=== PATIENT | female | born 1955 | race American Indian/Alaskan Native ===

== ENCOUNTER 2016-08-11 00:36 | Emergency (ER) | payer MEDICAID, OTHER ==
[2016-08-11 03:26] LABS: Basophils % (Auto) 0.2 % (0.0-1.8); Hematocrit 41.1 % (30.3-42.9); Hemoglobin 13.9 gm/dl (10.1-14.3); Mean Corpuscular HGB Conc 34 % (30-34); Mean Corpuscular Hemoglobin 31 pg (28-32); Mean Corpuscular Volume 90 fl (79-97); Platelet Count 216 K/mm3 (140-440); Red Blood Count 4.57 M/mm3 (3.65-5.03); Red Cell Distribution Width 12.2 % (13.2-15.2); White Blood Count 7.6 K/mm3 (4.5-11.0)
[2016-08-11 03:39] LABS: Anion Gap 26 mmol/L; BUN/Creatinine Ratio 17.27; Blood Urea Nitrogen 19 mg/dL (7-17); Calcium 10.1 mg/dL (8.4-10.2); Carbon Dioxide 24 mmol/L (22-30); Chloride 94.1 mmol/L (98-107); Glucose 303 mg/dL (65-100); Potassium 4.9 mmol/L (3.6-5.0); Sodium 139 mmol/L (137-145)
[2016-08-11] MEDS ORDERED: PERCOCET 5/325 ONE (03:47)
[2016-08-11] MEDS ORDERED: PERCOCET 5/325 PO ONE (03:55)
[2016-08-11 05:36] LABS: Bilirubin,Urine NEG (Negative); Blood,Urine NEG (Negative); Ketones,Urine 20 mg/dL (Negative); Leukocyte Esterase,Urine SM (Negative); Mucus,Urine FEW /HPF; Nitrite,Urine NEG (Negative); RBC,Urine < 1.0 /HPF (0.0-6.0); Urobilinogen,Urine < 2.0 mg/dL (<2.0)
[2016-08-11] MEDS ORDERED: MORPHINE IV ONE (07:11)
[2016-08-11] MEDS ORDERED: ZOFRAN IV ONE (07:11)
[2016-08-11] MEDS ORDERED: NACL 0.9% 1000 ML 1,000 ML IV ONE ×3 (07:11→13:12)
[2016-08-11] MEDS ORDERED: DILAUDID IV ONE (07:15)
--- NOTE | 2016-08-11 07:16 | Emergency Department Report ---
ED Abdominal Pain HPI - General Chief Complaint: Abdominal Pain Stated Complaint: ABD PAIN Time Seen by Provider: 08/11/16 07:10 Source: patient, RN notes reviewed, old records reviewed Mode of arrival: Ambulatory Limitations: No Limitations - History of Present Illness Initial Comments: This is a 61-year-old female. She is previously unknown to me. Has a past medical history of diabetes and hypertension. She presents to the ER complaining of abdominal pain. Abdominal pain as sharp, achy, and "all over." Patient denies irritative and obstructive urinary symptoms. There is no vaginal bleeding. Patient reports that she feels like she has a urinary tract infection. Also reports a history of neuropathy and chronic pain. MD Complaint: abdominal pain -: Gradual Location: diffuse Severity: moderate Severity scale (0 -10): 6 Quality: cramping Consistency: constant Improves With: medication Worsens With: movement Associated Symptoms: nausea, vomiting - Related Data Home Medications Medication Instructions Recorded Confirmed Last Taken Glimepiride [Amaryl] 4 mg PO DAILY 12/04/15 08/11/16 Unknown Insulin Aspart Prot/Aspart(Nf) 8 units SQ WMHS 12/04/15 08/11/16 Unknown [Novolog Mix 70/30] Insulin Detemir [Levemir VIAL] 30 unit SQ QHS 12/04/15 08/11/16 Unknown Lisinopril [Zestril TAB] 10 mg PO QDAY 12/04/15 08/11/16 Unknown Metformin HCl [Fortamet ER] 1,000 mg PO QDAY 12/04/15 08/11/16 Unknown Pravastatin Sodium [Pravastatin] 10 mg PO QHS 12/04/15 08/11/16 Unknown amLODIPine [Norvasc] 10 mg PO DAILY 12/04/15 08/11/16 Unknown Previous Rx's Medication Instructions Recorded Last Taken Type Oxycodone HCl/Acetaminophen 1 each PO Q6HR PRN #10 tablet 12/04/15 Unknown Rx [Percocet 7.5/325 mg] Promethazine [Phenergan TAB] 25 mg PO Q6HR PRN #20 tab 12/04/15 Unknown Rx Promethazine [Phenergan] 25 mg [place] Q6HR PRN #10 supp.rect 12/04/15 Unknown Rx Ciprofloxacin HCl [Ciprofloxacin 500 mg PO BID #14 tablet 01/21/16 Unknown Rx TAB] traMADol [Ultram] 50 mg PO Q6HR PRN #20 tablet 01/21/16 Unknown Rx Dicyclomine [Bentyl] 10 mg PO QID PRN #20 capsule 08/11/16 Unknown Rx Ondansetron [Zofran Odt] 4 mg PO QID PRN #20 tab.rapdis 08/11/16 Unknown Rx Promethazine [Phenergan SUPPOS] 50 mg [place] Q6H PRN #20 supp.rect 08/11/16 Unknown Rx Allergies Allergy/AdvReac Type Severity Reaction Status Date / Time No Known Allergies Allergy Verified 09/18/13 14:31 ED Review of Systems ROS: Stated complaint: ABD PAIN Other details as noted in HPI Constitutional: malaise. denies: fever Eyes: denies: vision change ENT: denies: epistaxis Respiratory: denies: cough Gastrointestinal: abdominal pain, nausea, vomiting Genitourinary: as per HPI. denies: urgency, dysuria, frequency Musculoskeletal: denies: back pain Skin: denies: lesions Neurological: weakness Psychiatric: anxiety ED Past Medical Hx - Past Medical History Previous Medical History?: Yes Hx Hypertension: Yes Hx Diabetes: Yes Additional medical history: Neuropathy. Chronic Pain- Dr. Chacon - Surgical History Past Surgical History?: Yes Additional Surgical History: r wrist repair-fx'd. partial thyroidectomy - Social History Smoking Status: Never Smoker Substance Use Type: None - Medications Home Medications: Home Medications Medication Instructions Recorded Confirmed Last Taken Type Glimepiride [Amaryl] 4 mg PO DAILY 12/04/15 08/11/16 Unknown History Insulin Aspart Prot/Aspart(Nf) 8 units SQ WMHS 12/04/15 08/11/16 Unknown History [Novolog Mix 70/30] Insulin Detemir [Levemir VIAL] 30 unit SQ QHS 12/04/15 08/11/16 Unknown History Lisinopril [Zestril TAB] 10 mg PO QDAY 12/04/15 08/11/16 Unknown History Metformin HCl [Fortamet ER] 1,000 mg PO QDAY 12/04/15 08/11/16 Unknown History Oxycodone HCl/Acetaminophen 1 each PO Q6HR PRN #10 tablet 12/04/15 08/11/16 Unknown Rx [Percocet 7.5/325 mg] Pravastatin Sodium [Pravastatin] 10 mg PO QHS 12/04/15 08/11/16 Unknown History Promethazine [Phenergan TAB] 25 mg PO Q6HR PRN #20 tab 12/04/15 08/11/16 Unknown Rx Promethazine [Phenergan] 25 mg [place] Q6HR PRN #10 supp.rect 12/04/15 08/11/16 Unknown Rx amLODIPine [Norvasc] 10 mg PO DAILY 12/04/15 08/11/16 Unknown History Ciprofloxacin HCl [Ciprofloxacin 500 mg PO BID #14 tablet 01/21/16 08/11/16 Unknown Rx TAB] traMADol [Ultram] 50 mg PO Q6HR PRN #20 tablet 01/21/16 08/11/16 Unknown Rx Dicyclomine [Bentyl] 10 mg PO QID PRN #20 capsule 08/11/16 Unknown Rx Ondansetron [Zofran Odt] 4 mg PO QID PRN #20 tab.rapdis 08/11/16 Unknown Rx Promethazine [Phenergan SUPPOS] 50 mg WY Q6H PRN #20 supp.rect 08/11/16 Unknown Rx ED Physical Exam - General Limitations: No Limitations General appearance: alert, in distress, obese - Head Head exam: Present: atraumatic, normocephalic - Eye Eye exam: Present: normal appearance, EOMI. Absent: nystagmus - ENT ENT exam: Present: normal exam, normal orophraynx, mucous membranes moist, normal external ear exam - Neck Neck exam: Present: normal inspection, full ROM. Absent: tenderness, meningismus - Respiratory Respiratory exam: Present: normal lung sounds bilaterally. Absent: respiratory distress, wheezes, rales, rhonchi, stridor, decreased breath sounds - Cardiovascular Cardiovascular Exam: Present: normal rhythm, tachycardia, normal heart sounds. Absent: systolic murmur, diastolic murmur, rubs, gallop - GI/Abdominal GI/Abdominal exam: Present: soft, normal bowel sounds. Absent: distended, tenderness, guarding, rebound, rigid, pulsatile mass - Extremities Exam Extremities exam: Present: normal inspection, full ROM, normal capillary refill. Absent: tenderness, pedal edema, joint swelling, calf tenderness - Back Exam Back exam: Present: normal inspection, full ROM. Absent: tenderness, CVA tenderness (R), CVA tenderness (L), muscle spasm, paraspinal tenderness, vertebral tenderness - Neurological Exam Neurological exam: Present: alert, oriented X3, other (Extraocular movements intact. Tongue midline. No facial droop. Facial sensation intact to light touch in the V1, V2, V3 distribution bilaterally. 5 and 5 strength in 4 extremities.. Sensation is intact to light touch in 4 extremities.). Absent: motor sensory deficit - Psychiatric Psychiatric exam: Present: normal affect, normal mood - Skin Skin exam: Present: warm, dry, intact, normal color. Absent: rash ED Course Vital Signs 08/11/16 08/11/16 08/11/16 00:57 04:06 05:06 Temperature 98.8 F Pulse Rate 101 H 121 H Respiratory 22 22 22 Rate Blood Pressure 186/110 Blood Pressure 214/145 [Left] O2 Sat by Pulse 98 98 99 Oximetry 08/11/16 08/11/16 13:10 14:29 Temperature Pulse Rate 110 H 87 Respiratory 15 16 Rate Blood Pressure Blood Pressure 138/69 181/101 [Left] O2 Sat by Pulse 100 99 Oximetry - Reevaluation(s) Reevaluation #1: 08/11/16 10:07 Differential diagnosis: Gastroparesis, cyclic vomiting syndrome, colitis, diverticulitis, perforation, narcotic bowel syndrome Assessment and plan: 61-year-old female with diffuse abdominal pain. She is not especially tender. Most likely has a component of undiagnosed gastroparesis. Required multiple rounds of IM and IV pain medication. Noncontrast CT scan of the abdomen and pelvis is pending. Plan to admit once data points have resulted. Reevaluation #2: 08/11/16 13:05 patient has had a prolonged course while in the emergency department because it took a very long time for the CAT scan to be performed, and for a CAT scan to be interpreted. Nevertheless, the CT scan of the abdomen and pelvis is negative, and essentially unchanged from her prior CT scan. The patient was able to tolerate liquid feeds without difficulty. Her symptoms appear to be improved. She is instructed to follow-up with an outpatient primary care doctor, outpatient tax intern. She will be discharged at this time. Return precautions are reviewed. Reevaluation #3: 08/11/16 13:17 the patient is resting comfortably, but is still somewhat tachycardic. The nurse informs me that the patient's IV fluids have Not completed their confusion. Nurse is instructed to pressure bag the fluids. Reevaluation #4: 08/11/16 14:31 tachycardia resolved. No active emesis. Patient will be discharged. - EJ/Peripheral Line Other Time Out Performed: Yes Indications: nurses unable to establis Skin Cleansed in Sterile Fashion: Yes Size: 22 Dressing Placed: Tegaderm Patient Tolerated Procedure: well Additional Comments: A 22-gauge IV is placed on the right anterior breast, while being escorted/ supervised by nurse Kinsey Christianson. The patient tolerated the procedure well. ED Medical Decision Making - Lab Data Result diagrams: 08/11/16 01:47 08/11/16 01:47 Vital Signs 08/11/16 08/11/16 08/11/16 00:57 04:06 05:06 Temperature 98.8 F Pulse Rate 101 H 121 H Respiratory 22 22 22 Rate Blood Pressure 186/110 Blood Pressure 214/145 [Left] O2 Sat by Pulse 98 98 99 Oximetry Labs 08/11/16 08/11/16 08/11/16 01:01 01:47 01:47 WBC 7.6 RBC 4.57 Hgb 13.9 Hct 41.1 MCV 90 MCH 31 MCHC 34 RDW 12.2 L Plt Count 216 Lymph % (Auto) 9.1 L [place] % (Auto) 1.7 Eos % (Auto) 0.0 Baso % (Auto) 0.2 Lymph # 0.7 L [place] # 0.1 Eos # 0.0 Baso # 0.0 Seg Neutrophils % 89.0 H Seg Neutrophils # 6.8 VBG pH Sodium 139 Potassium 4.9 Chloride 94.1 L Carbon Dioxide 24 Anion Gap 26 BUN 19 H Creatinine 1.1 Estimated GFR > 60 BUN/Creatinine Ratio 17.27 Glucose 303 H POC Glucose 318 H Lactic Acid Calcium 10.1 Total Bilirubin Direct Bilirubin AST ALT Total Protein Albumin Albumin/Globulin Ratio Lipase Urine Color Urine Turbidity Urine pH Ur Specific [place] Urine Protein Urine Glucose (UA) Urine Ketones Urine Blood Urine Nitrite Urine Bilirubin Urine Urobilinogen Ur Leukocyte Esterase Urine WBC (Auto) Urine RBC (Auto) U Epithel Cells (Auto) Urine Mucus 08/11/16 08/11/16 08/11/16 01:47 07:19 07:19 WBC RBC Hgb Hct MCV MCH MCHC RDW Plt Count Lymph % (Auto) [place] % (Auto) Eos % (Auto) Baso % (Auto) Lymph # [place] # Eos # Baso # Seg Neutrophils % Seg Neutrophils # VBG pH 7.339 Sodium Potassium Chloride Carbon Dioxide Anion Gap BUN Creatinine Estimated GFR BUN/Creatinine Ratio Glucose POC Glucose Lactic Acid 2.2 H* Calcium Total Bilirubin 0.4 Direct Bilirubin < 0.2 AST 18 ALT 14 Total Protein 9.1 H Albumin 5.1 H Albumin/Globulin Ratio 1.3 Lipase 9 L Urine Color Urine Turbidity Urine pH Ur Specific [place] Urine Protein Urine Glucose (UA) Urine Ketones Urine Blood Urine Nitrite Urine Bilirubin Urine Urobilinogen Ur Leukocyte Esterase Urine WBC (Auto) Urine RBC (Auto) U Epithel Cells (Auto) Urine Mucus 08/11/16 Unknown WBC RBC Hgb Hct MCV MCH MCHC RDW Plt Count Lymph % (Auto) [place] % (Auto) Eos % (Auto) Baso % (Auto) Lymph # [place] # Eos # Baso # Seg Neutrophils % Seg Neutrophils # VBG pH Sodium Potassium Chloride Carbon Dioxide Anion Gap BUN Creatinine Estimated GFR BUN/Creatinine Ratio Glucose POC Glucose Lactic Acid Calcium Total Bilirubin Direct Bilirubin AST ALT Total Protein Albumin Albumin/Globulin Ratio Lipase Urine Color Yellow Urine Turbidity Clear Urine pH 5.0 Ur Specific [place] 1.021 Urine Protein 100 mg/dl Urine Glucose (UA) >=500 Urine Ketones 20 Urine Blood Neg Urine Nitrite Neg Urine Bilirubin Neg Urine Urobilinogen < 2.0 Ur Leukocyte Esterase Sm Urine WBC (Auto) 5.0 Urine RBC (Auto) < 1.0 U Epithel Cells (Auto) 1.0 Urine Mucus Few - Radiology Data Radiology results: report reviewed, image reviewed CT scan of the abdomen and pelvis negative for acute disease Critical care attestation.: If time is entered above; I have spent that time in minutes in the direct care of this critically ill patient, excluding procedure time. ED Disposition Clinical Impression: Elevated blood pressure, Abdominal pain Disposition: DISCHARGED TO HOME OR SELFCARE Is pt being admited?: No Does the pt Need Aspirin: No Condition: Stable Instructions: Acute Nausea and Vomiting (ED), Abdominal Pain (ED) Additional Instructions: Take the pain medication, nausea medication as directed. Use the Phenergan suppositories which should be inserted rectally if you develop intractable nausea and vomiting. Follow-up with her primary care doctor or gastroenterology specialist within the next week to [address] Armas is a local primary care doctor. Dr. Bernstein is a local tax intern. Symptoms most likely coming from gastroparesis. Please note that blood pressure was elevated, and blood sugar was elevated. These should be followed up by her primary care doctor within the recommended timeframe. Long-term complications of hypertension and hyperglycemia includes stroke, heart attack, disability, , paralysis, loss of quality of life. Return to the ER right away with new pain, worsened pain, migration of pain, fevers or chills, nausea or vomiting, inability to tolerate liquid feeds. Prescriptions: Dicyclomine [Bentyl] 10 mg PO QID PRN #20 capsule PRN Reason: Pain Ondansetron [Zofran Odt] 4 mg PO QID PRN #20 tab.rapdis PRN Reason: Nausea Promethazine [Phenergan SUPPOS] 50 mg [place] Q6H PRN #20 supp.rect PRN Reason: Nausea Referrals: PRIMARY CARE, [Primary Care Provider] - 3-5 Days SANDRO AHN MD, PHD [Staff Physician] - 3-5 Days LOKI BERNSTEIN MD [Staff Physician] - 3-5 Days
[2016-08-11] MEDS ORDERED: NACL ONE (07:20)
[2016-08-11 07:49] LABS: Alanine Aminotransferase 14 units/L (7-56); Albumin 5.1 g/dL (3.9-5); Albumin/Globulin Ratio 1.3 %; Bilirubin,Total 0.4 mg/dL (0.1-1.2); Lipase 9 units/L (13-60); Total Protein 9.1 g/dL (6.3-8.2)
[2016-08-11 08:43] LABS: Bilirubin,Direct < 0.2 mg/dL (0-0.2)
[2016-08-11] MEDS ORDERED: HALDOL IM ONE (08:51)
[2016-08-11] MEDS ORDERED: DILAUDID ONE (09:41)
[2016-08-11] MEDS ORDERED: DILAUDID IM ONE (10:04)
[2016-08-11] MEDS ORDERED: APRESOLINE IV ONE (10:08)
[2016-08-11 10:14] LABS: Alkaline Phosphatase 110 units/L (35-129)
--- NOTE | 2016-08-11 10:34 | Admit Criteria Form ---
Admission Criteria Documentation: ABDOMINAL PAIN Clinical Indications for Admission to Inpatient Care (Place 'X' for any and all applicable criteria): Admission is indicated for ANY ONE of the following(1)(2)(3)(4)(5): [X ]I. Inpatient admission required rather than observation care (Also use Abdominal Pain: Observation Care, as appropriate) because of ANY ONE of the following: [ ]a) Severe pain requiring acute inpatient management [ ]b) Identification of etiology/finding that requires inpatient care (eg, aortic dissection, free air) [ ]c) Absent bowel sounds with complete ileus(6) [ ]d) Suspected toxic megacolon [ ]e) Severe electrolyte abnormalities requiring inpatient care [ ]f) High fever or infection requiring inpatient admission as indicated by ANY ONE of following(7)(8): [ ] i) Appropriate outpatient or observational care antimicrobial treatment unavailable, not effective, or not feasible [ ] ii) Documented bacteremia [ ] iii) Temperature > 104.9 degrees F (oral) [ ] iv) T >103.1 F (oral) or < 96.8 F(rectal) that does not respond to all emergency treatment measures [ ]g) Signs of intestinal obstruction [B] [ ]h) Hemodynamic instability [ ]i) IV fluid to replace significant ongoing losses (greater than 3 L/m2 per day) (12)(13) [ ]j) Percutaneous or open drainage (eg, abscess, biliary tract ) procedures [ ]k) Parenteral nutrition regimen that must be implemented on inpatient basis [ X]l) Other condition,treatment or monitoring requiring inpatient admission. [ ]II. Peritoneal signs present [ ]III. Surgery needed that cannot be performed on an ambulatory basis. [ ]IV. Evaluation requires patient to not eat or drink for extended period ( eg, more than 24 hours). [ ]V. Contraindications and/or Inappropriate clinical situations for Observational Care in patients with abdominal pain, when ANY ONE of the following is required: [ ]a) Thorough evaluation is required to prevent catastrophic events due to delays in diagnosing (e.g.Mesenteric ischemia) 1,3 [ ]b) Patient with severe pathology or with chronic symptoms unlikely to improve in the ED stay (3) [ ]. General contraindications and/or Inappropriate clinical situations for Observational Care in patients with abdominal pain, when ANY ONE of the following is required: [ ]a) Prediction of prolongation of LOS based on ANY ONE of the following may be considered as a contraindication for observational care 2, 3, 4, 5, 6, 7, 8, 9, 10, 11 [ ]i) Age > 65 yrs. [ ]ii) Patient arriving by ambulance [ ]iii) Patient with high acuity [ ]iv) Patient requiring vital sign monitoring [ ]v) Patient on IV medication [ ]b) Systolic blood pressures 180mmHg 3,12 [ ]c) Patient with altered mental status including delirium and other alteration of consciousness, (3) [ ]d) Patient whose discharge disposition will be to a fpc home or rehabilitation home should not be managed in Emergency Department Observation Unit. CMS rule requires 3 days hospital stay before such placement.3,13 [ ]e) Patient with failure to thrive due to broad array of etiologies 3,16,17 [ ]f) Inability to ambulate 3,14 Extended stay beyond goal length of stay may be needed for(2)(3): [ ]a) Persistent abdominal pain with suspected intra-abdominal process [ ]b) Diagnosed condition requiring continued stay (e.g., pancreatitis, complicated diverticulitis) [ ]c) Surgery (e.g., colectomy) The original [facility] content created by [employer] has been revised. The portions of the content which have been revised are identified through the use of italic text or in bold, and [facility] has neither reviewed nor approved the modified material.All other unmodified content is copyright [facility]. Please see references footnoted in the original [facility] edition 2016
--- NOTE | 2016-08-11 12:41 | Cat Scan Report ---
CT of the abdomen and pelvis with IV contrast. History: Abdominal pain/gastroparesis. Findings: Comparison is made to previous study performed on January 20, 2016. Limited intravenous contrast was used since the patient's IV infiltrated and was not restarted. there is a nodular contour of the liver which is also noted on the previous study. No focal hepatic abnormalities are seen. The spleen and pancreas are unremarkable and unchanged. The adrenal glands are normal. The kidneys are normal in size and configuration with no evidence of mass or hydronephrosis. There are no pelvic masses. No abnormal fluid collections are seen. The uterus and adnexal regions are unremarkable. There is no free air. There is no evidence of appendicitis. Extensive atheromatous calcifications are seen within the aorta and iliac vessels. Impression: Mild nodular contour of the liver unchanged since the previous study. No focal abnormalities are seen. 2. No acute findings or significant interval changes since the previous study in January of 2016..
[2016-08-11] MEDS ORDERED: ATIVAN IV ONE (13:12)
[2016-08-11] MEDS ORDERED: NACL 0.9% 1000 ML 1,000 ML ONE (13:26)
[2016-08-11 14:30] VITALS: BP 181/101
[2016-08-16 08:04] LABS: B-Hydroxybutyrate 1.7 mmol/L (0.2 - 0.28)
== END 2016-08-11 14:40 | disposition home or self-care (01) ==
LOC: ED 00:36
DX: I10 Essential (primary) hypertension (principal); R10.9 Unspecified abdominal pain; E11.9 Type 2 diabetes mellitus without complications; G89.29 Other chronic pain; Z79.4 Long term (current) use of insulin
CPT/HCPCS: 36415; 36569; 74176; 80048; 80074; 81001; 82010; 82140; 82805; 82962; 83690; 85025; 93005; 93010; 96361; 96372; 96374; 96375; 99285; J1170; J1630; J2405; J7030